=== PATIENT | female | born 1965 | race Caucasian/White ===

== ENCOUNTER 2021-06-09 18:07 | Emergency (ER) | payer MEDICAID, OTHER ==
[~2021-06-09] VITALS: Ht 152.4 cm; Wt 69.1 kg
[2021-06-09 18:15] VITALS: BP 133/70
[2021-06-09] MEDS ORDERED: FLUO20CA36 PO (18:15)
== END 2021-06-09 19:18 | disposition home or self-care (01) ==
LOC: EMS 18:09
DX: F32.9 Major depressive disorder, single episode, unspecified (principal); Z76.0 Encounter for issue of repeat prescription
CPT/HCPCS: 99281; Z7502